=== PATIENT | female | born 1985 | race Two or more races ===

== ENCOUNTER 2025-01-19 21:45 | Outpatient (REF) | payer OTHER, SELFPAY ==
[2025-01-25 16:09] LABS: Age Gdln ACOG Testing Note (.); IGP, Aptima HPV, rfx 16/18,45 Note (.)
== END 2025-01-19 21:46 | disposition home or self-care (01) ==
LOC: LAB 21:45
PROVIDERS: Visit Provider Physician Assistant
DX: Z01.419 Encounter for gynecological examination (general) (routine) without abnormal findings (principal)
CPT/HCPCS: 87624; 88175